=== PATIENT | female | born 1995 | race Two or more races ===

== ENCOUNTER 2016-08-05 20:48 | Emergency (ER) | payer OTHER, MEDICAID ==
[2016-08-05 20:58] VITALS: BP 145/94; PULSE 92; RESP 18; TEMP 97.7; O2SAT 97
[2016-08-05] MEDS ORDERED: hydrOXYzine HCL 50 MG/ML VIAL IM ONE (21:44)
--- NOTE | 2016-08-05 21:47 | EDPHY ---
General Narrative: CHIEF COMPLAINT: Anxiety reaction HISTORY OF PRESENT ILLNESS: patient complains of having anxiety symptoms earlier today and also recent illness. She says over the past few days she has had a cough, sore throat and feels like she may have a cold. [id number] symptoms that are not too bothersome for her. However today at school, she became very anxious. She says her heart was racing and she felt flushed, she felt dizzy and nauseated all same time. She was having spasms of the hands. Had no chest pain but she felt her heart racing. This lasted for several minutes. She exited the room she was in was pacing the hallways. She sought assistance from someone there were she was in the cafeteria. They sat her down and tending to her. She said the symptoms have improved but not resolved. She says that she feels very anxious and out of her skin. She has no previous incidents of this. She does have multiple stressors in her life. She has no thoughts of self-harm or harm others. She has no history of depression or anxiety. No other associated complaints or modifying factors. REVIEW OF SYSTEMS: Ten systems reviewed and are negative unless otherwise noted in the HPI EXAMINATION General Appearance: Alert, no distress , fidgeting Head: normocephalic, atraumatic Eyes: Pupils equal and round, no conjunctival pallor or injection ENT, Mouth: Mucous membranes moist . Uvula midline. No erythema or edema. Neck: Normal inspection, supple, non-tender Respiratory: Lungs are clear to auscultation. No wheezing, rhonchi or crackles. Cardiovascular: Regular rate and rhythm . No murmur. Pulses intact distally. Gastrointestinal: Abdomen is soft and nontender Neurological: A&O, nonfocal. Strength symmetric in all limbs. Sensory intact. Normal mental status. Skin: Warm and dry, no rash Extremities: Nontender, no pedal edema Psychiatric: Anxious appearance. No suicidal ideation. No homicidal ideation. DIFFERENTIAL DIAGNOSES: Including but not limited to Anxiety reaction. Acute stress reaction. Upper respiratory infection. Viral illness. MDM: 9:45 p.m. likely viral illness with anxiety type reaction. No suicidal ideation. No homicidal ideation. Vital signs are stable. No acute distress. No abnormal findings on examination. Treat with 1st dose of hydroxyzine here, and I will discharge her home with same. Return to ER for worsening symptoms. Follow up with primary care physician or on campus which do not help. Patient is comfortable with this plan and discharged home in stable condition with her friend who is at bedside. SUPERVISION: This patient was independently evaluated without the aide of supervising physician. - History Smoking Status: Former smoker - Objective Vital Signs: Initial Vital Signs Temperature (C) 97.7 F 08/05/16 20:55 Heart Rate 92 08/05/16 20:55 Respiratory Rate 18 08/05/16 20:55 Blood Pressure 145/94 H 08/05/16 20:55 O2 Sat (%) 97 08/05/16 20:55 O2 Delivery Mode Room Air Allergies/Adverse Reactions: No Known Allergies Allergy (Unverified 08/05/16 20:58) Home Medications: Medication Instructions Recorded hydrOXYzine HCL [Hydroxyzine HCl] 50 mg PO Q6-8PRN PRN #20 tablet 08/05/16 Medications Given: Discontinued Medications Hydroxyzine HCl (Hydroxyzine Hcl) 50 mg IM EDNOW ONE Stop: 08/05/16 21:45 Last Admin: 08/05/16 21:57 Dose: 50 mg Departure - Departure Disposition: Home, Routine, Self-Care Clinical Impression: Anxiety reaction, Viral syndrome Condition: Good Instructions: Viral Syndrome (ED), Anxiety (ED) Additional Instructions: Follow-up with primary care physician or student [facility]. Return to ER for worsening symptoms Referrals: [facility] [Other] - As per Instructions [facility] [Clinic] - As per Instructions Stand Alone Forms: Work Excuse Prescriptions: hydrOXYzine HCL [Hydroxyzine HCl] 50 mg PO Q6-8PRN PRN #20 tablet PRN Reason: Itching
== END 2016-08-05 21:59 | disposition home or self-care (01) ==
DX: F41.9 Anxiety disorder, unspecified (principal); B34.9 Viral infection, unspecified; Z87.891 Personal history of nicotine dependence
CPT/HCPCS: J3410